=== PATIENT | male | born 1960 | race Caucasian/White ===

== ENCOUNTER 2017-04-11 08:25 | Emergency (ER) | payer BC ==
--- NOTE | 2017-04-11 08:27 | UC ---
Eye Complaint HPI - HPI Summary HPI Summary: 56 year old male presents with left eye redness and pain. - History of Current Complaint Stated Complaint: EYE COMPLAINT Time Seen by Provider: 04/11/17 08:26 Hx Obtained From: Patient Onset/Duration: Sudden Onset Timing: Constant Severity Initially: Moderate Severity Currently: Moderate - Allergies/Home Medications Allergies/Adverse Reactions: Allergies Allergy/AdvReac Type Severity Reaction Status Date / Time No Known Allergies Allergy Verified 12/22/13 22:03 Home Medications: Home Medications Ascorbic Acid TAB* [Vitamin C TAB*] 500 mg PO DAILY 04/11/17 [History Confirmed 04/11/17] Beet 1 tab PO DAILY 04/11/17 [History Confirmed 04/11/17] Calcium 500 mg PO DAILY 04/11/17 [History Confirmed 04/11/17] Garlic 1,000 mg PO DAILY 04/11/17 [History Confirmed 04/11/17] [id number]-Wpjgxqzsryj-Bhf C- [Glucosamine Chondroitin] 1 tab PO DAILY [History Confirmed 04/11/17] Multiple Vitamin [Multi Vitamin] 1 tab PO DAILY 04/11/17 [History Confirmed ] [place]-3 Fatty Acids [Fish Oil] 1,000 mg PO DAILY 04/11/17 [History Confirmed ] Tumeric 1 tab PO DAILY 04/11/17 [History Confirmed 04/11/17] Vitamin B Complex TAB* [Complex B-100*] 1 tab PO DAILY 04/11/17 [History Confirmed 04/11/17] Zinc 30 mg PO DAILY 04/11/17 [History Confirmed 04/11/17] PMH/Surg Hx/FS Hx/Imm Hx Previously Healthy: Yes - Surgical History Surgical History: Yes Surgery Procedure, Year, and Place: lasix eye, right femur - Family History Known Family History: Positive: None - Social History Alcohol Use: Occasionally Substance Use Type: None Smoking Status (MU): Never Smoked Tobacco Review of Systems Constitutional: Negative Skin: Negative Eyes: Drainage, Eye Redness ENT: Negative Respiratory: Negative Cardiovascular: Negative Gastrointestinal: Negative Genitourinary: Negative Motor: Negative Neurovascular: Negative Musculoskeletal: Negative Neurological: Negative Psychological: Negative All Other Systems Reviewed And Are Negative: Yes Physical Exam Triage Information Reviewed: Yes Vital Signs Reviewed: Yes Eyes: Positive: Conjunctiva Inflamed ENT Exam: Normal Dental Exam: Normal Neck exam: Normal Neck: Positive: 1 Respiratory Exam: Normal Cardiovascular Exam: Normal Abdominal Exam: Normal Musculoskeletal Exam: Normal Neurological Exam: Normal Psychological Exam: Normal Skin Exam: Normal Eye Complaint Course/Dx - Differential Dx/Diagnosis Provider Diagnoses: left eye conjunctivitis Discharge - Discharge Plan Condition: Stable Disposition: HOME Prescriptions: Tobramycin/Dexameth OPTH.SUSP* [Tobradex 0.3-0.1%*] 1 drop LEFT EYE Q6H #1 btl Patient Education Materials: Conjunctivitis (ED) Referrals: Samir Bueno MD [Medical Doctor] - PEPE Pearce [Primary Care Provider] -
[2017-04-11 08:51] VITALS: BP 124/78
== END 2017-04-11 09:24 | disposition home or self-care (01) ==
LOC: UCCORT 08:25
DX: H10.9 Unspecified conjunctivitis (principal)
CPT/HCPCS: 99212; G0463

== ENCOUNTER 2019-06-03 15:27 | Emergency (ER) | payer BC ==
[2019-06-03 15:39] VITALS: BP 161/83
--- NOTE | 2019-06-03 16:37 | UC ---
Hand/Wrist HPI - HPI Summary HPI Summary: 58-year-old male who fell yesterday onto his right hand. He states that he elevated it and applied ice yesterday intermittently however today it's fairly swollen with pain. - History Of Current Complaint Chief Complaint: UCUpperExtremity Stated Complaint: S/P FALL, RIGHT HAND SWELLING Time Seen by Provider: 06/03/19 15:56 Hx Obtained From: Patient ?: No Onset/Duration: Sudden Onset Severity Initially: Moderate Severity Currently: Moderate Pain Intensity: 4 Character Of Pain: Dull, Aching Aggravating Factor(s): Movement, Flexion, Extension Alleviating Factor(s): Nothing - Patient was mostly concerned because of increased swelling today. Associated Signs And Symptoms: Positive: Swelling. Negative: Numbness/Tingling - Allergies/Home Medications Allergies/Adverse Reactions: Allergies Allergy/AdvReac Type Severity Reaction Status Date / Time No Known Allergies Allergy Verified 06/03/19 15:33 Home Medications: Home Medications Metoprolol Tartrate TAB* [Lopressor TAB*] 1 tab QPM 06/03/19 [History Confirmed 06/03/19] amLODIPine TAB* [Norvasc 5 mg TAB*] 10 mg DAILY 06/03/19 [History Confirmed ] PMH/Surg Hx/FS Hx/Imm Hx Previously Healthy: Yes Cardiovascular History: Hypertension - Surgical History Surgical History: Yes Surgery Procedure, Year, and Place: lasix eye, right femur - Family History Known Family History: Positive: None - Social History Occupation: Employed Full-time Alcohol Use: Occasionally Substance Use Type: None Smoking Status (MU): Never Smoked Tobacco Review of Systems All Other Systems Reviewed And Are Negative: Yes Musculoskeletal: Positive: Other: - Pain mostly to the lateral aspect of his right hand. Swelling has been since the injury. He states he's been elevating it and applying ice. He denies any numbness or paresthesia to his fingers. Is Patient Immunocompromised?: No Physical Exam Triage Information Reviewed: Yes Appearance: Well-Appearing, No Pain Distress, Well-Nourished Vital Signs: Initial Vital Signs Temp 99.3 F 06/03/19 15:35 Pulse 106 06/03/19 15:35 Resp 18 06/03/19 15:35 BP 161/83 06/03/19 15:35 Pulse Ox 98 06/03/19 15:35 Vital Signs Reviewed: Yes Musculoskeletal: Positive: Strength Intact, ROM Intact, Other: - Good peripheral pulses, neuro sensation and capillary refill, the dorsum of his right hand is swollen with tenderness on palpation over the fifth metacarpal. No deformity is noted. He has good finger strength with flexion and extension against resistance. Navicular is nontender. Wrist itself is intact and nontender. Good elbow and shoulder stability. Neurological Exam: Normal Psychological Exam: Normal Skin: Positive: Other - See above notes. Hand/Wrist Course/Dx - Course Course Of Treatment: Right hand x-ray:Indication: Right hand injury. 4 views of the right hand demonstrates degenerative changes of the interphalangeal joint. No fracture is noted. No other bone or joint abnormality is identified. IMPRESSION: Degenerative changes of the proximal and distal interphalangeal joints of the second through fifth digits. No fracture is noted. Patient is comfortable here, he has full range of motion of his hand. He was advised the importance of elevating as much as possible. He has continued to work since the injury. He is right handed. He is to apply ice intermittently and take ibuprofen for pain. We talked about compartment syndrome, which I don' t think he has however I did advise them to go immediately to the emergency room if he develops any numbness in his fingers, blue coloring or if they become cold. Patient is agreeable to this plan of action. He is to definitely follow-up with the orthopedist on Saturday if he has continued swelling without improvement. - Differential Dx/Diagnosis Provider Diagnosis: Contusion of right hand Discharge ED - Sign-Out/Discharge Documenting (check all that apply): Patient Departure All imaging exams completed and their final reports reviewed: Yes - Discharge Plan Condition: Fair Disposition: HOME Patient Education Materials: Contusion in Adults (ED) Referrals: Katie Piedra PA [Primary Care Provider] - Robyn Alcocer MD [Medical Doctor] - Josh Sky MD [Medical Doctor] - Additional Instructions: Elevate as much as possible, continue to apply ice intermittently over the next day or 2. Ibuprofen every 8 hours for pain and may alternate with Tylenol every 4 hours. Definite follow-up with the orthopedist on Saturday if continued swelling. If you develop any worsening symptoms where he was feeling in your fingers, they get cold or blue then you are to go immediately to the emergency room. - Billing Disposition and Condition Condition: FAIR Disposition: Home
== END 2019-06-03 17:02 | disposition home or self-care (01) ==
LOC: UCCORT 15:27
DX: S60.221A Contusion of right hand, initial encounter (principal); M19.041 Primary osteoarthritis, right hand; I10 Essential (primary) hypertension; W19.XXXA Unspecified fall, initial encounter; Y92.9 Unspecified place or not applicable; Z79.899 Other long term (current) drug therapy
CPT/HCPCS: 99212; G0463

== ENCOUNTER 2019-06-30 17:42 | Emergency (ER) | payer BC ==
--- NOTE | 2019-06-30 18:24 | UC ---
FLU HPI - HPI Summary HPI Summary: 58 yo male presents with flu-like symptoms. He tells me that last night he developed dry cough, fever, fatigue, body aches, and headache. He has not been taking anything OTC for his symptoms. Denies sinus symptoms, rash, SOB, chest pain, abdominal pain, n/v - History of Current Complaint Stated Complaint: BAUER,COUGH,CONGESTION,CHILLS Time Seen by Provider: 06/30/19 18:23 Hx Obtained From: Patient Severity Currently: Moderate Severity Initially: Moderate Pain Intensity: 6 Pain Scale Used: 0-10 Numeric - Allergy/Home Medications Allergies/Adverse Reactions: Allergies Allergy/AdvReac Type Severity Reaction Status Date / Time No Known Allergies Allergy Verified 06/30/19 18:23 PMH/Surg Hx/FS Hx/Imm Hx Endocrine History: Dyslipidemia Cardiovascular History: Hypertension - Surgical History Surgical History: Yes Surgery Procedure, Year, and Place: lasix eye, right femur - Family History Known Family History: Positive: None - Social History Lives: With Family Alcohol Use: Occasionally Substance Use Type: None Smoking Status (MU): Never Smoked Tobacco Review of Systems All Other Systems Reviewed And Are Negative: No Constitutional: Positive: Fever, Fatigue, Other - Body aches Skin: Positive: Negative Eyes: Positive: Negative ENT: Positive: Negative Respiratory: Positive: Cough Cardiovascular: Positive: Negative Gastrointestinal: Positive: Negative Neurological/Mental Status: Positive: Negative Psychological: Positive: Negative Physical Exam - Summary Physical Exam Summary: GENERAL: NAD. WDWN. No pain distress. SKIN: No rashes, sores, lesions, or open wounds. HEENT: Head: AT/NC Eyes: EOM intact. Conjunctiva clear without inflammation or discharge. Ears: Hearing grossly normal. TMs intact, no bulging, erythema, or edema. Nose: Nasal mucosa pink and moist. NTTP maxillary and frontal sinus. Throat: Posterior oropharynx without exudates, erythema, or tonsillar enlargement. Uvula midline. NECK: Supple. Nontender. No lymphadenopathy. CHEST: CTAB. No r/r/w. No accessory muscle use. Breathing comfortably and in no distress. CV: RRR. Pulses intact. Cap refill <2seconds NEURO: Alert. PSYCH: Age appropriate behavior. Triage Information Reviewed: Yes Vital Signs: Vital Signs: Temp Pulse Resp BP Pulse Ox 101.3 F 120 20 157/80 97 06/30/19 18:23 06/30/19 18:23 06/30/19 18:23 06/30/19 18:23 06/30/19 18:23 Laboratory Tests 06/30/19 18:36 Influenza A (Rapid) Positive H Vital Signs Reviewed: Yes Flu Course/Dx - Course Course Of Treatment: POC flu positive. He was given 800mg ibuprofen in the clinic for his fever. Rx for tamiflu - Differential Dx/Diagnosis Provider Diagnosis: Influenza Discharge ED - Sign-Out/Discharge Documenting (check all that apply): Patient Departure All imaging exams completed and their final reports reviewed: No Studies - Discharge Plan Condition: Stable Disposition: HOME Prescriptions: Benzonatate CAP* [Tessalon 100 MG CAP*] 100 mg PO TID PRN #21 cap PRN Reason: Cough Codeine Phosphate/Guaifenesin [Guaifen-Codeine 100-10 mg/5 ml] 5 ml PO BEDTIME PRN #35 ml MDD 5ml PRN Reason: Cough Oseltamivir CAP* [Tamiflu CAP*] 75 mg PO BID #10 cap Patient Education Materials: Influenza (ED) Referrals: No Primary Care Phys,NOPCP [Primary Care Provider] - Additional Instructions: If you develop a fever, shortness of breath, chest pain, new or worsening symptoms - please call your PCP or go to the ED immediately. Your blood pressure was high at todays visit. Please see your primary provider within 4 weeks for recheck and re-evaluation. Most people with the flu recover within one to two weeks without treatment. However, serious complications of the flu can occur. Go to the ER immediately if you: -- You feel short of breath or have trouble breathing -- You have pain or pressure in your chest or stomach -- You have signs of being dehydrated, such as dizziness when standing or not passing urine -- You feel confused -- You cannot stop vomiting or you cannot drink enough fluids There are several groups of people who are at increased risk for flu complications. These include women, young children (<5 years of age and especially <2 years of age), people older than 65 years of age, and people with certain diseases such as chronic lung disease (such as asthma), heart disease, diabetes, immunosuppressing conditions (such as HIV infection or transplantation), and some other diseases. Treat symptoms Treating the symptoms of influenza can help you to feel better but will not make the flu go away faster. -- Rest until the flu is fully resolved, especially if the illness has been severe. -- Fluids Drink enough fluids so that you do not become dehydrated. One way to jacquard loom fixer if you are drinking enough is to look at the color of your urine. Normally, urine should be light yellow to nearly colorless. If you are drinking enough, you should pass urine every three to five hours. -- Acetaminophen (sample brand name: Tylenol) can relieve fever, headache, and muscle aches. Aspirin and medicines that include aspirin (eg, bismuth subsalicylate [sample brand name: Pepto-Bismol]) are not recommended for children under 18 because aspirin can lead to a serious disease called Seema syndrome. -- Cough medicines are not usually helpful; cough usually resolves without treatment. We do not recommend cough or cold medicine for children under age 6 years. - Billing Disposition and Condition Condition: STABLE Disposition: Home
[2019-06-30 18:28] VITALS: BP 157/80
[2019-06-30] MEDS ORDERED: Ibuprofen TAB* 400 MG PO ONE (18:30)
[2019-06-30 18:40] LABS: Influenza A Molecular POSITIVE (Negative)
== END 2019-06-30 18:59 | disposition home or self-care (01) ==
LOC: UCCORT 17:42
DX: J11.1 Influenza due to unidentified influenza virus with other respiratory manifestations (principal); I10 Essential (primary) hypertension
CPT/HCPCS: 99212; A9270-GY; G0463